=== PATIENT | male | born 1950 | race Caucasian/White ===

== ENCOUNTER 2022-09-20 09:49 | Outpatient (CLI) | payer MEDICARE | END 2022-09-20 09:50 | disposition home or self-care (01) | LOC: RAD 09:49 | PROVIDERS: ATTEND Internal Medicine Geriatric Medicine | DX: I69.391 Dysphagia following cerebral infarction (principal); R13.12 Dysphagia, oropharyngeal phase; G20 Parkinson's disease; I63.30 Cerebral infarction due to thrombosis of unspecified cerebral artery | CPT/HCPCS: 74230 ==

== ENCOUNTER 2023-06-14 10:39 | Outpatient (CLI) | payer MEDICARE, MEDICAID | END 2023-06-14 10:40 | disposition home or self-care (01) | LOC: SCSRAD 10:39 | PROVIDERS: ATTEND Internal Medicine | DX: R05.9 Cough, unspecified (principal); I51.7 Cardiomegaly; I77.811 Abdominal aortic ectasia | CPT/HCPCS: 71046 ==